=== PATIENT | male | born 1955 | race Caucasian/White ===

== ENCOUNTER 2016-03-14 13:14 | Day surgery (SDC) | payer OTHER ==
[~2016-03-14] VITALS: Ht 177.8 cm; Wt 169.1 kg
[~2016-03-14 13:14] MED LIST: ASMANEX TW200 MICRO1 IH; AUGMENTIN875 MG PO; BREO ELLIPTA I1 EACH IH; CEFTIN250 MG PO; CELEXA20 MG PO; CLONAZEPAM0.5 MG PO; FENOFIBRATE200 M1 PO; FLOXIN OTIC SOLN5 ML RIGHT EAR; HYDROCHLOROTHIA25 MG PO; LISINOPRIL10 MG PO; NORVASC10 MG PO; PRAVASTATIN SOD40 MG PO; PROAIR HFA8.5 GM IH; VENTOLIN HFA18 GM IH
[2016-03-14 13:36] VITALS: BP 138/76
[2016-03-14 17:12] VITALS: BP 120/67
[2016-03-14 18:00] VITALS: BP 134/68
== END 2016-03-14 18:05 | disposition home or self-care (01) ==
LOC: SDC 13:14
PROC: 0LX50ZZ Transfer Right Lower Arm and Wrist Tendon, Open Approach (ICD-10-PCS; principal; 2016-03-14)
PROC: 01Q53ZZ Repair Median Nerve, Percutaneous Approach (ICD-10-PCS; principal; 2016-03-14)
PROC: 0RRS0JZ Replacement of Right Carpometacarpal Joint with Synthetic Substitute, Open Approach (ICD-10-PCS; principal; 2016-03-14)
DX: M18.11 Unilateral primary osteoarthritis of first carpometacarpal joint, right hand (principal); G56.01 Carpal tunnel syndrome, right upper limb; I10 Essential (primary) hypertension; J45.909 Unspecified asthma, uncomplicated; K21.9 Gastro-esophageal reflux disease without esophagitis
CPT/HCPCS: C1769; J0330; J1100; J1170; J2405; J2710; J3010; S0020

== ENCOUNTER 2016-10-19 05:23 | Day surgery (SDC) | payer OTHER ==
[~2016-10-19] VITALS: Ht 177.8 cm; Wt 168.2 kg
[2016-10-19 06:09] VITALS: BP 138/88
[2016-10-19 10:10] VITALS: BP 115/48
[2016-10-19 11:15] VITALS: BP 109/48
[2016-10-19 12:00] VITALS: BP 130/60
== END 2016-10-19 12:28 | disposition home or self-care (01) ==
LOC: SDC 05:23
DX: G57.52 Tarsal tunnel syndrome, left lower limb (principal); M72.2 Plantar fascial fibromatosis; I10 Essential (primary) hypertension; J45.909 Unspecified asthma, uncomplicated; E66.9 Obesity, unspecified; Z68.43 Body mass index [BMI] 50.0-59.9, adult; G47.30 Sleep apnea, unspecified; E78.00 Pure hypercholesterolemia, unspecified
CPT/HCPCS: J0690; J2175; J2250; J2405; J3010; S0020